=== PATIENT | male | born 2000 | race Two or more races ===

== ENCOUNTER 2021-11-11 15:04 | Emergency (ER) | payer MEDICAID, OTHER ==
[~2021-11-11] VITALS: Ht 160 cm; Wt 57.0 kg
[2021-11-11 16:45] VITALS: BP 126/88
[2021-11-11] MEDS ORDERED: KETO2CRE4 TOP (17:12)
== END 2021-11-11 17:26 | disposition home or self-care (01) ==
LOC: ER 15:04
DX: B48.8 Other specified mycoses (principal)